=== PATIENT | female | born 2000 | race Hispanic/Latino ===

== ENCOUNTER 2021-12-30 12:26 | Observation (INO) | payer MEDICAID ==
[~2021-12-30] VITALS: Ht 160 cm; Wt 83.9 kg
[2021-12-30 12:31] VITALS: BP 127/82
[2021-12-30 13:11] LABS: APPEARANCE,URINE SL CLOUDY (CLEAR); BILIRUBIN,URINE NEGATIVE (NEGATIVE); COLOR,URINE YELLOW (YELLOW); GLUCOSE, URINE (UA) NEGATIVE (NEGATIVE); KETONES,URINE NEGATIVE (NEGATIVE); LEUKOCYTE ESTERASE ,URINE MODERATE (NEGATIVE); NITRATE,URINE NEGATIVE (NEGATIVE); OCCULT BLOOD,URINE NEGATIVE (NEGATIVE); PROTEIN,URINE TRACE mg/dL (NEGATIVE); UROBILINOGEN,URINE 0.2 mg/dL (0.2-1.0)
[2021-12-30 13:40] LABS: BACTERIA,URINE Moderate /HPF (None Seen)
[2021-12-30 13:41] LABS: MUCUS,URINE Few LPF (None Seen); RBC,URINE 0-1 /HPF (0-1); SQUAMOUS EPITHELIAL CELL,UR Moderate /HPF (0-2)
== END 2021-12-30 14:00 | disposition home or self-care (01) ==
LOC: EDH 12:26 → LDH 12:42
PROVIDERS: ADMIT Obstetrics & Gynecology; ATTEND Obstetrics & Gynecology
DX: O26.893 Other specified pregnancy related conditions, third trimester (principal); R10.30 Lower abdominal pain, unspecified; R60.0 Localized edema; Z3A.37 37 weeks gestation of pregnancy
CPT/HCPCS: 81001; 87088; G0378; G0379